=== PATIENT | male | born 2000 | race American Indian/Alaskan Native ===

== ENCOUNTER 2019-06-23 10:15 | Emergency (ER) | payer SELFPAY ==
[2019-06-23 10:21] VITALS: BP 134/72
--- NOTE | 2019-06-23 12:54 | Emergency Department Report ---
- General Chief Complaint: Upper Respiratory Infection Stated Complaint: CHEST PAIN Time Seen by Provider: 06/23/19 10:46 Source: patient, EMS Mode of arrival: Ambulatory Limitations: No Limitations - History of Present Illness Initial Comments: 19-year-old -[place] male smoker presents emergency department complaining of a 2 month history of cough congestion and coryza and no relief with [id number] medications. States he was seen here about one month ago but has no resolution of symptoms. Reports no fever, chills, sweats no chest pain or palpitations no nausea or vomiting no diarrhea no abdominal pain. MD Complaint: cough, rhinorrhea, nasal congestion -: Gradual, month(s) (1) Severity: moderate Improves With: nothing Worsens With: nothing Associated Symptoms: cough. denies: nausea, vomiting, rash, confusion, weight loss - Related Data Previous Rx's Medication Instructions Recorded Last Taken Type Acetamin/Codeine 120-12Mg/5 ml 5 ml PO BID PRN #5 dose 05/01/14 Unknown Rx [Tylenol/Codeine] Penicillin Vk [Veetids TAB] 500 mg PO BID #20 tablet 05/01/14 Unknown Rx ALBUTEROL Inhaler (OR & NICU) 1 puff IH Q4-6H PRN #1 inha 06/23/19 Unknown Rx [ProAir HFA Inhaler] Benzonatate [Tessalon Perles] 100 mg PO Q8HR #20 capsule 06/23/19 Unknown Rx Allergies Allergy/AdvReac Type Severity Reaction Status Date / Time No Known Allergies Allergy Unverified 05/01/14 12:31 ED Review of Systems ROS: Stated complaint: CHEST PAIN Other details as noted in HPI Comment: All other systems reviewed and negative ED Past Medical Hx - Past Medical History Previous Medical History?: No - Surgical History Past Surgical History?: No - Social History Smoking Status: Current Every Day Smoker Substance Use Type: Non Opiate Pain - Medications Home Medications: Home Medications Medication Instructions Recorded Confirmed Last Taken Type Acetamin/Codeine 120-12Mg/5 ml 5 ml PO BID PRN #5 dose 05/01/14 Unknown Rx [Tylenol/Codeine] Penicillin Vk [Veetids TAB] 500 mg PO BID #20 tablet 05/01/14 Unknown Rx ALBUTEROL Inhaler (OR & NICU) 1 puff IH Q4-6H PRN #1 inha 06/23/19 Unknown Rx [ProAir HFA Inhaler] Benzonatate [Tessalon Perles] 100 mg PO Q8HR #20 capsule 06/23/19 Unknown Rx ED Physical Exam - General Limitations: No Limitations General appearance: alert, in no apparent distress - Head Head exam: Present: atraumatic, normocephalic - Eye Eye exam: Present: normal appearance, PERRL, EOMI Pupils: Present: normal accommodation - ENT ENT exam: Present: normal exam, normal orophraynx, mucous membranes moist - Neck Neck exam: Present: normal inspection, full ROM - Respiratory Respiratory exam: Present: normal lung sounds bilaterally. Absent: respiratory distress, wheezes, rales, chest wall tenderness, accessory muscle use, decreased breath sounds - Cardiovascular Cardiovascular Exam: Present: regular rate, normal rhythm. Absent: systolic murmur, diastolic murmur, rubs, gallop - GI/Abdominal GI/Abdominal exam: Present: soft, normal bowel sounds. Absent: distended, guarding, hyperactive bowel sounds, hypoactive bowel sounds, organomegaly - Rectal Rectal exam: Present: deferred - Extremities Exam Extremities exam: Present: normal inspection - Back Exam Back exam: Present: normal inspection - Neurological Exam Neurological exam: Present: alert, oriented X3 - Psychiatric Psychiatric exam: Present: normal affect, normal mood - Skin Skin exam: Present: warm, dry, intact, normal color. Absent: rash ED Course Vital Signs 06/23/19 10:17 Temperature 97.6 F Pulse Rate 87 Respiratory 18 Rate Blood Pressure 134/72 O2 Sat by Pulse 98 Oximetry Critical care attestation.: If time is entered above; I have spent that time in minutes in the direct care of this critically ill patient, excluding procedure time. ED Disposition Clinical Impression: Chest congestion, Cough Disposition: DC-01 TO HOME OR SELFCARE Is pt being admited?: No Does the pt Need Aspirin: No Condition: Stable Instructions: Cold Symptoms (ED), Acute Cough (ED) Prescriptions: ALBUTEROL Inhaler (OR & NICU) [ProAir HFA Inhaler] 1 puff IH Q4-6H PRN #1 inha PRN Reason: Cough Benzonatate [Tessalon Perles] 100 mg PO Q8HR #20 capsule Referrals: PRIMARY CAREMD [Primary Care Provider] - 3-5 Days MITCH VIZCAINO MD [Staff Physician] - 3-5 Days
== END 2019-06-23 13:18 | disposition home or self-care (01) ==
LOC: ED 10:15
DX: R07.89 Other chest pain (principal); R05 Cough; F17.200 Nicotine dependence, unspecified, uncomplicated; Z79.899 Other long term (current) drug therapy

== ENCOUNTER 2021-05-18 03:59 | Emergency (ER) | payer SELFPAY ==
--- NOTE | 2021-05-18 04:14 | Emergency Department Report ---
ED General Adult HPI - General Chief complaint: Upper Respiratory Infection Stated complaint: Cough, wheezing, chest wall pain PUI?: No Time Seen by Provider: 05/18/21 04:13 Source: patient, EMS ( EMS documentation not available at time of chart dictation ), RN notes reviewed Mode of arrival: Stretcher Limitations: No Limitations - History of Present Illness Initial comments: Verbal report received from emergency medical services. The patient is a 20-year-old gentleman. He is not known to myself previously. He has a history of tobacco and smoke product consumption, as well as intermittent marijuana use. He presents to the ER with a complaint of central chest tightness, associated with 4 years of intermittent cough, clear mucus production. He is also wheezing. The patient denies fever, headache, neck pain, abdominal pain, vomiting, travel, surgery, immobilization, DVT/PE risk factors. No personal family history of DVT/PE that he is aware of. He is not COVID-19 vaccinated. Endorses chronic loss of smell. -: Gradual, year(s) Location: chest Radiation: non-radiation Quality: aching Consistency: intermittent Improves with: rest Worsens with: movement, other (Coughing and palpation) - Related Data Previous Rx's Medication Instructions Recorded Last Taken Type Acetaminophen [Non-Aspirin Extra 500 mg PO Q6HR PRN #30 tablet 05/18/21 Unknown Rx Strength] Albuterol Sulfate [Proair 90 mcg IH Q4HR PRN #2 aer.pow.ba 05/18/21 Unknown Rx Respiclick] Benzonatate [Tessalon Perles] 100 mg PO Q8HR PRN #30 capsule 05/18/21 Unknown Rx Ibuprofen [Motrin] 600 mg PO Q8H PRN #30 tablet 05/18/21 Unknown Rx predniSONE [Deltasone] 40 mg PO QDAY #8 tab 05/18/21 Unknown Rx Allergies Allergy/AdvReac Type Severity Reaction Status Date / Time No Known Allergies Allergy Verified 05/18/21 04:15 ED Review of Systems ROS: Stated complaint: Other details as noted in HPI Constitutional: denies: fever Eyes: denies: eye discharge ENT: denies: epistaxis Respiratory: cough, shortness of breath Cardiovascular: chest pain (Chest wall pain) Gastrointestinal: denies: vomiting Neurological: denies: weakness ED Past Medical Hx - Past Medical History Previous Medical History?: No - Surgical History Past Surgical History?: No - Social History Smoking Status: Current Every Day Smoker Substance Use Type: Non Opiate Pain - Medications Home Medications: Home Medications Medication Instructions Recorded Confirmed Last Taken Type Acetaminophen [Non-Aspirin Extra 500 mg PO Q6HR PRN #30 tablet 05/18/21 Unknown Rx Strength] Albuterol Sulfate [Proair 90 mcg IH Q4HR PRN #2 aer.pow.ba 05/18/21 Unknown Rx Respiclick] Benzonatate [Tessalon Perles] 100 mg PO Q8HR PRN #30 capsule 05/18/21 Unknown Rx Ibuprofen [Motrin] 600 mg PO Q8H PRN #30 tablet 05/18/21 Unknown Rx predniSONE [Deltasone] 40 mg PO QDAY #8 tab 05/18/21 Unknown Rx ED Physical Exam - General Limitations: No Limitations General appearance: alert, in no apparent distress - Head Head exam: Present: atraumatic, normocephalic - Eye Eye exam: Present: normal appearance, EOMI. Absent: nystagmus - ENT ENT exam: Present: normal exam, normal orophraynx, mucous membranes moist, normal external ear exam - Neck Neck exam: Present: normal inspection, full ROM. Absent: tenderness, meningismus - Respiratory Respiratory exam: Present: wheezes, rhonchi, chest wall tenderness. Absent: respiratory distress - Cardiovascular Cardiovascular Exam: Present: regular rate, normal rhythm, normal heart sounds. Absent: bradycardia, tachycardia, irregular rhythm, systolic murmur, diastolic murmur, rubs, gallop - GI/Abdominal GI/Abdominal exam: Present: soft. Absent: distended, tenderness, guarding, rebound, rigid, pulsatile mass - Rectal Rectal exam: Present: deferred - Extremities Exam Extremities exam: Present: normal inspection, full ROM, other (2+ pulses noted in the bilateral upper and lower extremities. There is no palpable cord. negative Homans sign. Muscular compartments are soft. The pelvis is stable.). Absent: pedal edema, calf tenderness - Back Exam Back exam: Present: normal inspection, full ROM. Absent: tenderness, CVA tende rness (R), CVA tenderness (L), paraspinal tenderness, vertebral tenderness - Neurological Exam Neurological exam: Present: alert, oriented X3, normal gait, other (No facial droop. Tongue midline. Extraocular movements intact bilaterally. Facial sensation intact to light touch in V1, V2, V3 distribution bilaterally. 5 and a 5 strength in 4 extremities. Sensation intact to light touch in 4 extremities.). Absent: motor sensory deficit - Psychiatric Psychiatric exam: Present: normal affect, normal mood - Skin Skin exam: Present: warm, dry, intact, normal color. Absent: rash ED Course Vital Signs 05/18/21 05/18/21 05/18/21 04:14 04:23 04:42 Temperature 97.8 F 98.2 F Pulse Rate 85 85 Respiratory 18 16 16 Rate Blood Pressure 138/88 136/80 [Left] O2 Sat by Pulse 99 94 Oximetry ED Medical Decision Making - Lab Data Vital Signs 05/18/21 05/18/21 05/18/21 04:14 04:23 04:42 Temperature 97.8 F 98.2 F Pulse Rate 85 85 Respiratory 18 16 16 Rate Blood Pressure 138/88 136/80 [Left] O2 Sat by Pulse 99 94 Oximetry - EKG Data -: EKG Interpreted by Ar EKG shows normal: sinus rhythm Rate: normal - EKG Data When compared to previous EKG there are: previous EKG unavailable 05/18/21 05:01 The EKG is interpreted at 04: 35 Sinus rhythm, 88 bpm. Rightward axis deviation. Normal P wave axis. High left ventricular voltage. Early repolarization. Age appropriate variant, not a STEMI. This is unchanged from the prehospital EKG - Radiology Data Radiology results: pending, report reviewed, image reviewed CHEST 2 VIEWS INDICATION: cough cp. COMPARISON: None. FINDINGS: Support devices: None. Heart: Within normal limits. Lungs/Pleura: No acute air space or interstitial disease. No significant pleural effusion. IMPRESSION: No acute findings. Signer Name: Cleveland Mendez MD Signed: 05/18/2021 3:40 AM Workstation Name: [id number] - Medical Decision Making Differential diagnosis, including but not limited to: Costochondritis, bronchitis, pneumonia, pneumonitis Assessment and plan: 20-year-old gentleman, who was afebrile, with reassuring vital signs, who is not currently tachycardic, tachypneic or hypoxic, who denies DVT and pulmonary embolism risk factors, who is low risk by Wells criteria for pulmonary embolism and is PERC negative, who walks with a steady gait, is noted on multiple examinations to be on his cell phone, in no acute distress, with chest wall pain/costochondritis and reactive airways disease. Saturating well on room air. Counseled to discontinue tobacco and smoke product consumption. Albuterol, Atrovent, steroids, outpatient Tylenol/Motrin, primary care follow-up. Return precautions are reviewed. Critical care attestation.: If time is entered above; I have spent that time in minutes in the direct care of this critically ill patient, excluding procedure time. ED Disposition Clinical Impression: Bronchitis Disposition: HOME / SELF CARE / HOMELESS Is pt being admited?: No Does the pt Need Aspirin: No Condition: Good Instructions: Chronic Bronchitis (ED), Asthma, Adult Additional Instructions: Patient likely has bronchitis, and superimposed costochondritis. This is likely coming from coughing, irritating the muscles and connective tissue of the chest wall, and also secondary to probable reactive airways disease in the lungs. We recommend that the patient discontinue tobacco and smoke consumption. Symptoms of bronchitis typically last anywhere from 3 to 6 weeks. Take the pain medication as needed. Take the steroids as directed. Take the albuterol inhaler as directed. Follow-up with a primary care doctor within the next week for repeat checkup and evaluation. Recommend outpatient COVID-19 vaccination. Please return to the emergency room right away with new pain, worsened pain, migration of pain, projectile vomiting, change in mental status, confusion, inability to tolerate liquid feeds, new, worsened or different symptoms not present in the initial emergency room evaluation Referrals: [facility] [Provider Group] - 3-5 Days Forms: Work/School Release Form(ED)
[2021-05-18] MEDS ORDERED: ALBUTEROL 2.5 MG/3 ML NEBU IH ONE (04:23)
[2021-05-18] MEDS ORDERED: ACETAMINOPHEN 325 MG TAB PO ONE (04:23)
[2021-05-18] MEDS ORDERED: IPRATROPIUM 0.02% NEBU 2.5 ML IH ONE (04:23)
[2021-05-18] MEDS ORDERED: predniSONE 20 MG TAB PO ONE (04:23)
[2021-05-18 04:24] VITALS: BP 136/80
--- NOTE | 2021-05-18 04:44 | XRay Report ---
CHEST 2 VIEWS INDICATION: cough cp. COMPARISON: None. FINDINGS: Support devices: None. Heart: Within normal limits. Lungs/Pleura: No acute air space or interstitial disease. No significant pleural effusion. IMPRESSION: No acute findings. Signer Name: Cleveland Mendez MD Signed: 05/18/2021 4:40 AM Workstation Name: [id number]
--- NOTE | 2021-05-18 10:27 | Electrocardiograph Report ---
[facility] Test Date: 2021-05-18 Test Time: 04:35:41 Pat Name: JACKELYN CERNA Department: Room: Gender: M [employer] Driver: : [id number] Requested By: AMARILIS BEVERLY Order Number: [id number] Reading MD: Blaine Judge Measurements Intervals [place] Rate: 88 P: 52 CO: 149 QRS: 118 QRSD: 85 T: 39 QT: 355 QTc: 429 Interpretive Statements Sinus rhythm Probable right ventricular hypertrophy No previous ECG available for comparison Electronically Signed On 05-18-2021 10:26:42 EST by Blaine Judge
== END 2021-05-18 06:19 | disposition home or self-care (01) ==
LOC: ED 03:59
DX: J40 Bronchitis, not specified as acute or chronic (principal); F17.200 Nicotine dependence, unspecified, uncomplicated
CPT/HCPCS: 71046; 93005; 94640; 99283; J7512; 94644